=== PATIENT | female | born 1980 | race African-American/Black ===

== ENCOUNTER 2018-02-20 20:11 | Day surgery (SDC) | payer MEDICAID ==
[~2018-02-20 20:11] MED LIST: LACTATED RINGERS 1,000 ML IV ONE
[2018-02-20 20:51] LABS: BASOPHILS # (AUTO) 0.1 10^3/uL (0.0-0.1); BASOPHILS % (AUTO) 0.5 %; EOSINOPHILS # (AUTO) 0.1 10^3/uL (0.0-0.7); EOSINOPHILS % (AUTO) 0.6 %; HGB - HEMOGLOBIN 12.3 g/dL (12.0-16.0); LYMPHOCYTES % (AUTO) 11.7 %; MEAN CORPUSCULAR HEMOGLOBIN 31.8 pg (27.0-31.0); MEAN CORPUSCULAR HGB CONC 32.7 g/dL (32.0-36.0); MEAN CORPUSCULAR VOLUME 97.1 fL (81.0-99.0); MEAN PLATELET VOLUME 7.2 fL (7.9-10.8); MONOCYTES # (AUTO) 1.2 10^3/uL (0.0-1.0); MONOCYTES % (AUTO) 6.9 %; NEUTROPHILS # (AUTO) 13.8 10^3/uL (1.5-6.6); NEUTROPHILS % (AUTO) 80.3 %; PLT - PLATELET COUNT 310 10^3/uL (130-450); RED BLOOD COUNT 3.88 10^6/uL (4.20-5.40); RED CELL DISTRIBUTION WIDTH 14.2 % (12.0-15.0); WHITE BLOOD COUNT 17.2 x10^3/uL (4.8-10.8)
[2018-02-20 21:04] LABS: ALBUMIN/GLOBULIN RATIO 0.9 (1.0-2.2); BILIRUBIN,TOTAL 0.4 mg/dL (0.2-1.0); CALCIUM 8.5 mg/dL (8.5-10.3); CREATININE 0.6 mg/dL (0.4-1.0); TOTAL PROTEIN 6.3 g/dL (6.7-8.2)
[2018-02-20] MEDS ORDERED: cefOXitin 1 GM in SODIUM CHLORIDE 0.9% MINIBAG 100 ML IV STA (21:48)
[2018-02-20] MEDS ORDERED: DOXYCYCLINE INJ 100 MG in SODIUM CHLORIDE 0.9% MINIBAG 100 ML IV STA (21:48)
--- NOTE | 2018-02-20 21:54 | Ultrasound Report ---
Procedure Date: 02/20/2018 Accession Number: [id number] / [id number] Procedure: US - Pelvic w/Doppler Complete CPT Code: FULL RESULT: EXAM: PELVIC ULTRASOUND EXAM DATE: 02/20/2018 08:56 PM. CLINICAL HISTORY: Post- pain/fever, ?endometritis. COMPARISON: None. TECHNIQUE: Real-time transabdominal pelvic scan performed to identify the uterus and adnexa and as an overview of other pelvic structures, followed by transvaginal scan to provide greater detail of the uterus and adnexa, with static image documentation. FINDINGS: Uterus: 12.6 x 6.3 x 8.8 cm, volume 365 cc. Anteverted position. Heterogeneous myometrium. Masses: None. Endometrium: 6.9 mm. Complex fluid is present in the endometrial canal. More focal, echogenic avascular material is present in or abutting the posterior myometrium. This area measures 2.1 x 0.7 cm when measured by this radiologist. No concomitant vascularity is noted. Cervix: Unremarkable. Right Ovary: 2.5 x 1.6 x 2.2 cm, volume 4.6 cc. Normal echotexture and blood flow. Left Ovary: 3.2 x 1.3 x 2.2 cm, volume 4.7 cc. Normal echotexture and blood flow. Free Fluid: None. Other: None. IMPRESSION: 1. Complex fluid within the endometrial canal is compatible with hemorrhage. There is a more focal irregular area in the posterior endometrial canal measuring 2.1 x 0.7 cm without concomitant vascularity. Findings could represent a submucosal fibroid, focal blood clot or retained products of conception. 2. No ultrasound findings concerning for endometritis. 3. Both ovaries and adnexa are normal. RADIA
--- NOTE | 2018-02-20 22:02 | ED Physician Documentation ---
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 She was sent by her tours captain for concern for endometritis. Her tours captain called me prior to arrival.) Review of Systems Ten Systems: 10 systems reviewed and negative Constitutional: reports: Fever, Chills GI: reports: Abdominal Pain. denies: Nausea, Vomiting, Constipation, Diarrhea : denies: Dysuria, Frequency PD PAST MEDICAL HISTORY - Past Medical History Past Medical History: No - Allergies Allergies/Adverse Reactions: Allergies Allergy/AdvReac Type Severity Reaction Status Date / Time No Known Drug Allergies Allergy Verified 02/20/18 20:19 - Living Situation Living Situation: reports: With spouse/s.o. - Social History Does the pt smoke?: No Does the pt drink ETOH?: No - Family History Family history: reports: Non contributory PD ED PE NORMAL - Vitals Vital signs reviewed: Yes - General General: Alert and oriented X 3, No acute distress - HEENT HEENT: PERRL, EOMI - Neck Neck: Supple, no meningeal sign, No bony TTP - Cardiac Cardiac: RRR, No murmur - Respiratory Respiratory: No respiratory distress, Clear bilaterally - Abdomen Abdomen: Other (Mild lower abdominal tenderness with slightly soft fundus. No surgical signs.) - Back Back: No CVA TTP, No spinal TTP - Derm Derm: Normal color, Warm and dry - Extremities Extremities: No edema, No calf tenderness / cord - Neuro Neuro: Alert and oriented X 3, Normal speech - Psych Psych: Normal mood, Normal affect Results - Vitals Vitals: Vital Signs - 24 hr 02/20/18 02/20/18 20:13 21:31 Temperature 37.1 C Heart Rate 77 74 Respiratory 16 Rate Blood Pressure 128/87 H 109/68 O2 Saturation 97 96 Oxygen O2 Source Room air - Labs Labs: Laboratory Tests 02/20/18 02/20/18 20:45 20:45 WBC 17.2 H RBC 3.88 L Hgb 12.3 Hct 37.7 MCV 97.1 MCH 31.8 H MCHC 32.7 RDW 14.2 Plt Count 310 MPV 7.2 L Neut # (Auto) 13.8 H Lymph # (Auto) 2.0 [place] # (Auto) 1.2 H Eos # (Auto) 0.1 Baso # (Auto) 0.1 Absolute Nucleated RBC 0.00 Nucleated RBC % 0.0 Sodium 135 Potassium 3.3 L Chloride 101 Carbon Dioxide 26 Anion Gap 8.0 BUN 13 Creatinine 0.6 Estimated GFR (MDRD) 112 Glucose 103 H Calcium 8.5 Total Bilirubin 0.4 AST 22 ALT 21 Alkaline Phosphatase 41 L Total Protein 6.3 L Albumin 3.0 L Globulin 3.3 Albumin/Globulin Ratio 0.9 L Lipase 27 PD MEDICAL DECISION MAKING - ED course ED course: 38-year-old woman presents with concern for endometritis, has white count of 17,000 with a left shift and concerning ultrasound. Case discussed with Dr. Paez, the on-call OB by phone at 9:45 PM and she will be in to see the patient. She agrees on starting cefoxitin and doxycycline in the interim. - Sepsis Event Vital Signs: Vital Signs - 24 hr 02/20/18 02/20/18 20:13 21:31 Temperature 37.1 C Heart Rate 77 74 Respiratory 16 Rate Blood Pressure 128/87 H 109/68 O2 Saturation 97 96 Oxygen O2 Source Room air Departure - Departure Disposition: ED Transfer to [facility] Clinical Impression: Endometritis decidual Condition: Stable
[2018-02-20 22:20] LABS: BILIRUBIN,URINE NEGATIVE (NEGATIVE); GLUCOSE, URINE (UA) NEGATIVE (NEGATIVE); KETONES,URINE (UA) NEGATIVE (NEGATIVE); LEUKOCYTE ESTERASE, URINE LARGE (NEGATIVE); NITRITE,URINE NEGATIVE (NEGATIVE); OCCULT BLOOD,URINE LARGE (NEGATIVE); PROTEIN,URINE NEGATIVE (NEGATIVE); UROBILINOGEN,URINE 0.2 (NORMAL) E.U./dL (NORMAL)
[2018-02-20 22:23] LABS: CLARITY,URINE HAZY (CLEAR); HCG UR QUAL NEGATIVE
[2018-02-20 22:52] LABS: BACTERIA,URINE Few /HPF (None Seen); RBC,URINE 0-5 /HPF (0-5); SQUAMOUS EPITHELIAL CELL,UR NONE SEEN (<= Few)
[2018-02-20] MEDS ORDERED: CELECOXIB 100 MG CAPSULE PO ONE (23:21)
[2018-02-21] MEDS ORDERED: LIDOCAINE-MPF 2% 5 ML VIAL IM ONE (00:43)
[2018-02-21] MEDS ORDERED: NEOSTIGMINE 1 MG/1 ML 10 ML MDV IVP ONE (00:43)
[2018-02-21] MEDS ORDERED: PROPOFOL 200 MG/20 ML VIAL IVP ONE (00:43)
[2018-02-21] MEDS ORDERED: ROCURONIUM 50 MG/5 ML VIAL IVP ONE (00:43)
[2018-02-21] MEDS ORDERED: GLYCOPYRROLATE 1 MG/5 ML VIAL IVP ONE (00:43)
[2018-02-21] MEDS ORDERED: ceFAZolin 1 GM VIAL IV ONE (00:43)
--- NOTE | 2018-02-21 01:09 | OPERATIVE REPORT ---
Operative Report - Other Other Information/Narrative: Date of Operation: 02/21/2018 Surgeon: Fiorella Paez DO FACOG Garment Alteration Examiner: None Anesthesiologist: Vahe Brown MD Anesthesia: GET Pre-Op Dx: 1. 38 yo 2. Retained products of conception 3. Opening of 2nd degree repair Post-Op Dx: 1. 38 yo 2. Retained products of conception 3. Opening of 2nd degree repair Procedure: 1. Suction dilation and curettage 2. Repair of 2nd degree laceration Findings: 1. Retained products of conception 2. Opening of a 2nd degree midline laceration repair. Dermabond present and breaking up into small pieces. Old scar of a mediolateral episiotomy. Specimens: Endometrial curettings Drains: None EBL: 10 mL Complications: None H&P Dictation #: [id number] OP Note Dictation #: [id number]
[2018-02-21] MEDS ORDERED: ACETAMINOPHEN 1,000 MG/100 ML 100 ML IV ONE (01:47)
--- NOTE | 2018-02-21 02:55 | HISTORY & PHYSICAL EXAMINATION ---
DATE OF SERVICE: 02/20/2018 Physician: Fiorella Paez DO FACOG IDENTIFICATION: A 38-year-old G3, P2-0-1-2, status post spontaneous vaginal delivery on 02/08/2018 at home. HISTORY OF PRESENT ILLNESS: The patient delivered at her house by a assistant activities director on 02/08/2018. She states that her delivery was well and uncomplicated. She delivered at about 38 weeks' gestation of a viable female infant who weighed about 6 pounds 3 ounces. The patient said that it was her understanding that the baby delivered with the placenta itself. She had some bleeding that she described as a lot after delivery due to a short umbilical cord. The patient stated that she was having significant bleeding and did recall dizziness up to day #2. The bleeding, then became less. However, today the patient stated that she started having very heavy bleeding in which the pad was wet. She states that she was bleeding even when she was lying down. She would change a pad every 1-3 hours. She also described that her pain was significant. The patient states that she really does not like to take medications and has not taken any days-tjz-[id number]. Patient did get some blood work taken last week. I do not have access to any of her , intrapartum or records. The patient stated that she felt dizzy but denied any syncope. She also denied any nausea, vomiting, fevers, chills, or diarrhea. She is currently her daughter. PAST MEDICAL HISTORY: None. She denies hypertension, diabetes. PAST SURGICAL HISTORY: None. ALLERGIES: NO KNOWN DRUG ALLERGIES. MEDICATIONS: None, but she does take some supplements, includin. Vitamin C. 2. Vitamin D. 3. Beef liver. 4. Probiotics. 5. Something called OPC-3 on [facility]. SOCIAL HISTORY: She states that she does not drink any alcohol or consume tobacco. She denies any illicit drug use. 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 They are both from [place]. The patient and her have a 3-year-old daughter, who is being currently taken care of by the assistant activities director. PAST OBSTETRICAL HISTORY 1. One spontaneous vaginal delivery in [place] of a term . Patient states that she was in labor for 40 hours. Michelle had an episiotomy performed. It was unclear to her why she had an episiotomy. The baby girl had complications and had to be in the NICU for a week. 2. One spontaneous . 3. On 02/08/2018, she had a spontaneous vaginal delivery at 38 weeks' gestation. The female baby weighed 6 pounds 3 ounces, and she was in labor for about 5 hours. The patient stated that the episiotomy that was performed with her first delivery had opened up with this second delivery. It was the patient' s understanding that it was a small tear, and glue had been placed on the incision in order to repair it. PAST GYNECOLOGICAL HISTORY: She denies any abnormal Pap smears. FAMILY HISTORY: Noncontributory. REVIEW OF SYSTEMS: Negative unless otherwise stated. PHYSICAL EXAMINATION VITAL SIGNS: Temperature 37.1, pulse 77, respirations 16, blood pressure 128/ 87 and 109/68, pulse oximetry of 99% on room air. GENERAL: The patient is a well-developed, well-nourished [place] female in no apparent distress. She is alert and oriented x3. The patient speaks moderate [place]. She is an okay historian but does not specifically know a lot about her medical history. HEENT: Within normal limits. She does wear glasses. ABDOMEN: Soft, benign, nontender. No peritoneal signs. PERINEUM: There is a moderate amount of lochia on the perineum. There appears to be Dermabond reapproximating a second-degree midline laceration. It is not well approximated. There is no active bleeding in this area. STUDIES Laboratory data show sodium of 135, potassium 3.3, chloride 101, CO2 is 26, calcium 8.5, glucose 103, ALT 21, AST 22, creatinine 0.6, BUN 13, lipase 27. White count is 17.2, hemoglobin is 12.3, hematocrit 37.7, platelets 310. Ultrasound shows a complex fluid within the endometrial canal that is compatible with hemorrhage. There is a more focal irregular area in the posterior endometrial canal measuring 2.1 x 0.7 cm without concomitant vascularity. These findings could represent submucosal fibroid, focal blood clot, or retained products of conception. No ultrasound findings concerning for endometritis. Both ovaries and adnexa are normal. ASSESSMENT 1. A 38-year-old G3, P2-0-1-2, status post spontaneous vaginal delivery on of a 38-week gestation. 2. Retained products of conception. 3. Opening a second-degree midline perineal laceration. PLAN 1. I discussed with the patient my clinical suspicion is that she has retained products of conception. In addition, she is having an opening of her second- degree laceration of her perineum. I would recommend to the patient that we proceed to a suction dilatation and curettage as well as a repair of her second- degree midline laceration. Included in my discussion but was not limited to the risks, benefits, alternatives, indications, and expectations of surgery. Included in our discussion were the risks of hemorrhage, infection, and damage to surrounding organs, which in this case is most likely inadvertent uterine perforation. By not proceeding with this procedure, she may continue to bleed to the point where she needs a blood transfusion, or she may evolve into a coy endometritis. Also, if the vulvar laceration is not repaired correctly, this may increase her risk of having a rectocele down the road. After all of the patient's questions were answered to her satisfaction, she verbalized her desire to proceed with surgery. Consent forms have been signed. 2. I anticipate sending the patient home with a prescription for Augmentin for prophylaxis of endometritis as well as vulvitis. 3. Will have prescriptions for high-dose ibuprofen available for the patient. 4. Discussed with the patient that I would like to see her in 2 weeks at [facility] for a routine postoperative visit. She verbalizes her understanding. TD: 02/20/2018 23:38 JOHN
[2018-02-21 03:16] VITALS: BP 110/62
--- NOTE | 2018-02-21 09:05 | OPERATIVE REPORT ---
DATE OF OPERATION: 02/21/2018 SURGEON: Fiorella Paez DO, FACOG SYSTEM INTEGRATION ENGINEER: None. ANESTHESIOLOGIST: Vahe Brown MD ANESTHESIA: General endotracheal tube. PREOPERATIVE DIAGNOSES 1. A 38-year-old G3, P2-0-1-2. 2. Retained products of conception. 3. Opening of second-degree repair. POSTOPERATIVE DIAGNOSES 1. A 38-year-old G3, P2-0-1-2. 2. Retained products of conception 3. Opening of second-degree repair. PROCEDURE 1. Suction, dilatation and curettage. 2. Repair of second-degree laceration. FINDINGS 1. Retained products of conception. 2. Opening of a second-degree midline laceration repair. Dermabond was present and breaking up into small pieces. Old scar of a mediolateral episiotomy was seen at the 7 o'clock area. SPECIMENS: Endometrial curettings. DRAINS: None. ESTIMATED BLOOD LOSS: 10 mL COMPLICATIONS: None. HISTORY OF PRESENT ILLNESS: The patient had a home delivery approximately 13 days ago on 02/08/2018. She reported that she had a 38-week gestation of a female fetus who weighed 6 pounds 3 ounces. It was a 5-hour delivery. The patient recalled that she bled a lot, and the placenta delivered at the same time as the fetus did. She was told that she had a lot of bleeding due to a short umbilical cord. The patient also was told that she had a laceration that was reapproximated with Dermabond. The patient presented to [facility] Emergency Department secondary to increased vaginal bleeding, as well as abdominal pain. A workup was suspicious for retained products of conception. The patient, though afebrile, had an elevated white count of 17,000. It was my clinical assessment that the patient had not only retained products of conception, but also an opening of her second-degree midline laceration. I discussed with the patient the risks, benefits, alternatives, indications, and expectations of a suction, dilatation and curettage, as well as repair of her second-degree midline laceration. Included in our discussion was the risk of hemorrhage, infection, damage to surrounding organs, which most likely would be an inadvertent uterine perforation. By not performing a suction , dilatation and curettage, this may precipitate endometritis, as well as continued heavy vaginal bleeding secondary to retained products of conception. After the patient's questions were answered to her satisfaction, she verbalized her desire to proceed with surgery. Consent forms have been signed. OPERATION IN DETAIL: The patient was taken to the operating room where IV access was already in place. She was already given Celebrex 200 mg p.o. in the emergency department as well as 1 dose of doxycycline and cefoxitin. The patient was then placed on the operating room table and given satisfactory general endotracheal tube anesthesia as per Dr. Brown. The patient was then prepped and draped in normal sterile fashion in the lithotomy position using Yellofin stirrups. Approximately 50-100 mL of urine were obtained using an in-and-out catheter. Inspection of the perineum revealed that the patient had an old mediolateral laceration at the 7 o'clock area. This was well healed and well approximated. The patient also had a second- degree midline perineal laceration at the 6 o'clock area that was quite ratty in the edges and not reapproximating well. There were no signs of any gross erythema or edema. An open-sided speculum was placed inside the vagina, and a single-tooth tenaculum was applied to the anterior lip of the cervix. The uterus was then sounded to 7 cm. A firm, curved, 7-Danish suction curette was then used to curette the endometrium. Sharp curettage was then performed afterwards. A satisfactory uterine cry was palpated throughout the entire endometrium. All instruments were removed out of the vagina, and hemostasis was seen again in the cervix and vagina. The repair of the open second-degree laceration was then addressed. The edges of the midline laceration were freshened until bleeding tissue was seen. The laceration was then prepared in the standard fashion using 3-0 Vicryl. At this point in time, the procedure had been concluded. The patient was taken to recovery room in stable condition. She will be discharged to home later today after postoperative criteria are met. The patient is to see me at [facility] in 2 weeks. Prescriptions for Motrin 800 mg as well as Augmentin have been given to the patient for postoperative recovery. All sponge, lap, and needle counts were correct x2 as per nurse report. TD: 02/21/2018 01:18 [facility]
== END 2018-02-20 22:36 | disposition home or self-care (01) ==
LOC: ED 20:11 → SDS 22:35
PROVIDERS: ATTEND Obstetrics & Gynecology
PROC: 0KQM0ZZ Repair Perineum Muscle, Open Approach (ICD-10-PCS; 2018-02-20)
PROC: 10D17ZZ Extraction of Products of Conception, Retained, Via Natural or Artificial Opening (ICD-10-PCS; principal; 2018-02-20 23:45)
DX: O72.2 Delayed and secondary postpartum hemorrhage (principal); O70.1 Second degree perineal laceration during delivery
CPT/HCPCS: 36415; 59160; 59300; 76856; 80053; 81001; 81025; 83690; 85025; 87086; 93975; 96365; 99283; 99284; A9270; J7120; 81003

== ENCOUNTER 2018-02-22 16:56 | Emergency (ER) | payer MEDICAID ==
--- NOTE | 2018-02-22 17:46 | ED Physician Documentation ---
PD HPI FEMALE - Stated complaint Stated Complaint: FEMALE - Chief complaint Chief Complaint: Abd Pain - History obtained from History obtained from: Patient - History of Present Illness Timing - onset: How many days ago (2) Timing - duration: Days (2) Timing - details: Gradual onset Pain level max: 3 Pain level max: 3 Associated symptoms: Pelvic pain (cramping), Vaginal bleeding (states 2 pads/hr since last night). No: Fever, Chest/shoulder pain, Back pain Recently seen: Surgery (d&C for retained POC.) Review of Systems Ten Systems: 10 systems reviewed and negative Constitutional: denies: Fever, Chills Ears: denies: Ear pain Nose: denies: Rhinorrhea / runny nose, Congestion Cardiac: denies: Chest pain / pressure Respiratory: denies: Cough GI: denies: Nausea, Vomiting, Diarrhea : denies: Dysuria Skin: denies: Rash Musculoskeletal: denies: Neck pain, Back pain Neurologic: denies: Focal weakness, Headache PD PAST MEDICAL HISTORY - Past Medical History Past Medical History: No - Past Surgical History Past Surgical History: No - Allergies Allergies/Adverse Reactions: Allergies Allergy/AdvReac Type Severity Reaction Status Date / Time No Known Drug Allergies Allergy Verified 02/20/18 20:19 - Living Situation Living Situation: reports: With family Living Arrangement: reports: At home - Social History Does the pt smoke?: No Smoking Status: Never smoker Does the pt drink ETOH?: No Does the pt have substance abuse?: No - Family History Family history: reports: Non contributory - POLST Patient has POLST: No PD ED PE NORMAL - Vitals Vital signs reviewed: Yes - General General: Alert and oriented X 3, No acute distress, Well developed/nourished - HEENT HEENT: PERRL, Moist mucous membranes - Neck Neck: Supple, no meningeal sign - Cardiac Cardiac: RRR, Strong equal pulses - Respiratory Respiratory: No respiratory distress, Clear bilaterally - Abdomen Abdomen: Soft, Non tender, Non distended - Female Female : Pt declined - Derm Derm: Warm and dry - Extremities Extremities: No edema - Neuro Neuro: Alert and oriented X 3 - Psych Psych: Normal mood, Normal affect Results - Vitals Vitals: Vital Signs - 24 hr 02/22/18 02/22/18 02/22/18 17:22 18:17 18:56 Temperature 37 C Heart Rate 72 65 58 L Respiratory 18 16 16 Rate Blood Pressure 102/63 108/75 106/78 O2 Saturation 97 99 97 Oxygen O2 Source Room air - Labs Labs: Laboratory Tests 02/22/18 02/22/18 02/22/18 17:41 17:41 17:41 WBC 11.1 H RBC 3.78 L Hgb 12.1 Hct 36.4 L MCV 96.2 MCH 31.9 H MCHC 33.1 RDW 14.6 Plt Count 321 MPV 7.1 L Neut # (Auto) 8.1 H Lymph # (Auto) 1.9 [place] # (Auto) 0.8 Eos # (Auto) 0.3 Baso # (Auto) 0.1 Absolute Nucleated RBC 0.00 Nucleated RBC % 0.0 Sodium 137 Potassium 3.8 Chloride 102 Carbon Dioxide 27 Anion Gap 8.0 BUN 14 Creatinine 0.4 Estimated GFR (MDRD) 217 Glucose 108 H Calcium 8.8 Total Bilirubin 0.5 AST 20 ALT 19 Alkaline Phosphatase 44 Total Protein 6.6 L Albumin 3.4 Globulin 3.2 Albumin/Globulin Ratio 1.1 Lipase 23 Blood Type A POSITIVE Antibody Screen NEGATIVE PD MEDICAL DECISION MAKING - ED course Complexity details: reviewed results, re-evaluated patient, considered differential, d/w patient, d/w family, d/w pharmacy consultant ED course: Patient is a 38-year-old female who presents to the emergency department after a D&C a few days ago. Increased vaginal bleeding over the past 24 hours. She felt lightheaded and dizzy earlier. Feels better after IV fluids. No appreciable drop in her hemoglobin and hematocrit from 2 days ago. I did discuss the case with OB on-call, Dr. Wilson who recommends follow-up closely in the clinic. Does not recommend any repeat imaging or medication at this time. We will have her follow-up in the clinic for further evaluation. Patient and family counseled regarding signs and symptoms for which I believe and urgent re- evaluation would be necessary. Patient with good understanding of and agreement to plan and is comfortable going home at this time This document was made in part using voice recognition software. While efforts are made to proofread this document, sound alike and grammatical errors may occur. - Sepsis Event Vital Signs: Vital Signs - 24 hr 02/22/18 02/22/18 02/22/18 17:22 18:17 18:56 Temperature 37 C Heart Rate 72 65 58 L Respiratory 18 16 16 Rate Blood Pressure 102/63 108/75 106/78 O2 Saturation 97 99 97 Oxygen O2 Source Room air Departure - Departure Disposition: 01 Home, Self Care Clinical Impression: Vaginal bleeding Condition: Good Instructions: ED Bleed Irregular Vaginal Follow-Up: Fiorella Paez DO [Primary Care Provider] - Within 3 Days Comments: Your blood counts are normal tonight. Drink plenty of water at home. Return if you worsen. Make sure to follow up [facility] Dr. Paez in the office this week. Discharge Date/Time: 02/22/18 19:02
[2018-02-22 17:48] LABS: BASOPHILS # (AUTO) 0.1 10^3/uL (0.0-0.1); BASOPHILS % (AUTO) 0.5 %; EOSINOPHILS # (AUTO) 0.3 10^3/uL (0.0-0.7); EOSINOPHILS % (AUTO) 2.3 %; HGB - HEMOGLOBIN 12.1 g/dL (12.0-16.0); LYMPHOCYTES # (AUTO) 1.9 10^3/uL (1.5-3.5); LYMPHOCYTES % (AUTO) 17.1 %; MEAN CORPUSCULAR HEMOGLOBIN 31.9 pg (27.0-31.0); MEAN CORPUSCULAR HGB CONC 33.1 g/dL (32.0-36.0); MEAN CORPUSCULAR VOLUME 96.2 fL (81.0-99.0); MEAN PLATELET VOLUME 7.1 fL (7.9-10.8); MONOCYTES # (AUTO) 0.8 10^3/uL (0.0-1.0); MONOCYTES % (AUTO) 7.1 %; NEUTROPHILS # (AUTO) 8.1 10^3/uL (1.5-6.6); PLT - PLATELET COUNT 321 10^3/uL (130-450); RED BLOOD COUNT 3.78 10^6/uL (4.20-5.40); RED CELL DISTRIBUTION WIDTH 14.6 % (12.0-15.0); WHITE BLOOD COUNT 11.1 x10^3/uL (4.8-10.8)
[2018-02-22 18:00] LABS: ALBUMIN 3.4 g/dL (3.2-5.5); ALBUMIN/GLOBULIN RATIO 1.1 (1.0-2.2); BILIRUBIN,TOTAL 0.5 mg/dL (0.2-1.0); CALCIUM 8.8 mg/dL (8.5-10.3); CREATININE 0.4 mg/dL (0.4-1.0); TOTAL PROTEIN 6.6 g/dL (6.7-8.2)
[2018-02-22] MEDS: SODIUM CHLORIDE 0.9% 1,000 ML IV ONE ×2 (18:12→18:21)
[2018-02-22 19:02] VITALS: BP 106/78
== END 2018-02-22 19:02 | disposition home or self-care (01) ==
LOC: ED 16:56
DX: N93.9 Abnormal uterine and vaginal bleeding, unspecified (principal); Z98.890 Other specified postprocedural states
CPT/HCPCS: 36415; 80053; 83690; 85025; 86850; 86900; 86901; 99283